=== PATIENT | male | born 1940 | race Hispanic/Latino ===

== ENCOUNTER 2017-05-29 11:26 | Observation (INO) | payer MEDICARE ==
[2017-05-29 11:33] VITALS: BMI 23.7
[2017-05-29] MEDS ORDERED: Aspirin 325 mg EC Tablets PO STA (12:05)
--- NOTE | 2017-05-29 12:10 | ED PDOC ---
Arrival/HPI <Bryon Durham - Last Filed: 05/29/17 12:53> - General Historian: Patient EM Caveat: Acuity of Condition - History of Present Illness Time/Duration: Prior to Arrival, < month (1 month) Symptom Onset: Gradual Symptom Course: Worsening Quality: Pressure Severity Level: 3 Activities at Onset: Rest, Light Context: Sitting, Standing, Home <Kellen Rodriguez - Last Filed: 05/29/17 14:58> - General Chief Complaint: Chest Pain Time Seen by Provider: 05/29/17 11:30 - History of Present Illness Narrative History of Present Illness (Text): 05/29/17 12:22 76 years old male with PMH anxiety, hernia repair, nonsmoker, presents for left sided chest pain for past 1 month. He states that its intermittent, not related to activities, describes it as pressure, denies radiation of pain, feels like "gas," denies sob, diaphoresis, palpitations, syncope, nausea, vomiting, diarrhea, constipation, urinary symptoms, headache, vision changes, weakness. Pt does feel anxious, as something is going on at home. Pt has not had similar pain before. No stress test previously done. PMD: Cardiello (Kellen Rodriguez) Associated Symptoms (Text): 05/29/17 12:33 denies sob, diaphoresis, palpitations, syncope, nausea, vomiting, diarrhea, constipation, urinary symptoms, headache, vision changes, weakness. (Kellen Rodriguez) Past Medical History - Provider Review Nursing Documentation Reviewed: Yes - Infectious Disease Hx of Infectious Diseases: None - Psychiatric Hx Anxiety: Yes Hx Substance Use: No - Anesthesia Hx Anesthesia: No <Kellen Rodriguez - Last Filed: 05/29/17 14:58> Family/Social History - Physician Review Nursing Documentation Reviewed: Yes Family/Social History: No Known Family HX Smoking Status: Unknown If Ever Smoked Hx Alcohol Use: No Hx Substance Use: No <Kellen Rodriguez - Last Filed: 05/29/17 14:58> Allergies/Home Meds <Bryon Durham - Last Filed: 05/29/17 12:53> <Kellen Rodriguez - Last Filed: 05/29/17 14:58> Allergies/Adverse Reactions: Allergies No Known Allergies Allergy (Verified 05/29/17 13:44) Home Medications: Home Meds Medication Instructions Recorded Confirmed Escitalopram [Lexapro] 10 mg PO DAILY 05/29/17 05/29/17 Review of Systems - Review of Systems Constitutional: absent: Fatigue, Fevers Eyes: absent: Vision Changes ENT: absent: Hearing Changes Respiratory: absent: SOB, Cough Cardiovascular: Chest Pain. absent: Palpitations, Calf Pain, MCALLISTER, Orthopnea, Syncope Gastrointestinal: Other (Dyspepsia). absent: Abdominal Pain, Constipation, Diarrhea, Nausea, Vomiting Genitourinary Male: absent: Dysuria, Hematuria Musculoskeletal: absent: Back Pain Skin: absent: Rash Neurological: absent: Headache, Focal Weakness Endocrine: absent: Diaphoresis Psychiatric: Anxiety <Kellen Rodriguez - Last Filed: 05/29/17 14:58> Physical Exam Vital Signs Reviewed: Yes Temperature: Afebrile Blood Pressure: Normal Pulse: Regular Respiratory Rate: Normal Appearance: Positive for: Non-Toxic Pain Distress: None Mental Status: Positive for: Alert and Oriented X 3 - Systems Exam Head: Present: Atraumatic, Normocephalic Pupils: Present: PERRL Extroacular Muscles: Present: EOMI Conjunctiva: Present: Normal Mouth: Present: Moist Mucous Membranes Pharnyx: No: ERYTHEMA Neck: Present: Normal Range of Motion Respiratory/Chest: Present: Clear to Auscultation. No: Respiratory Distress, Accessory Muscle Use Cardiovascular: Present: Regular Rate and Rhythm, Normal S1, S2. No: Murmurs Abdomen: Present: Normal Bowel Sounds. No: Tenderness, Distention Upper Extremity: Present: Normal Inspection, NORMAL PULSES. No: Edema Lower Extremity: Present: NORMAL PULSES. No: Edema, CALF TENDERNESS Neurological: Present: GCS=15, Speech Normal Skin: Present: Warm, Dry Psychiatric: Present: Alert, Oriented x 3, Anxious <Kellen Rodriguez - Last Filed: 05/29/17 14:58> Vital Signs Temp Pulse Resp BP Pulse Ox 05/29/17 14:12 98.5 F 63 18 103/74 05/29/17 13:48 63 18 103/74 99 05/29/17 11:26 98.5 F 91 H 18 131/83 100 Medical Decision Making - Lab Interpretations I have reviewed the lab results: Yes Interpretation: All labs normal (nonspecific elevation BUN not clinically significant) - RAD Interpretation Saturator Operator: ED Physician, Radiologist - EKG Interpretation Type: 12 lead EKG Comparison: No previous EKG avail. <Bryon Durham - Last Filed: 05/29/17 12:53> - Lab Interpretations I have reviewed the lab results: Yes Interpretation: All labs normal - RAD Interpretation Saturator Operator: ED Physician, Radiologist - EKG Interpretation Interpreted by ED Physician: Yes Comparison: No previous EKG avail. <Kellen Rodriguez - Last Filed: 05/29/17 14:58> ED Course and Treatment: I examined and interviewed the patient and reviewed the care and management Given the patient's first presentation no prior cardia nonspecific EKG changes advanced age, and suspicious atypical symptoms believe that he should observed or admitted to the hospital for a cardiology consultation and stress. given the pressure-like symptoms non-tachycardia doubt PE doubt aortic dissection again no typical symptoms of aortic dissection no signs of pneumothorax pneumonia or CHF. GERD and anxiety are diagnoses of exclusion. 05/29/17 12:53 05/29/17 12:55 (Bryon Durham) 05/29/17 12:05 76 years old male with no significant PMH, presents for atypical chest pain: - CBC, CMP, lipase, cardiac iso, coags - ASA, Pepcid - EKG, CXR - HEART score 4 points (Moderate risk) - Reassess (Kellen Rodriguez) - Lab Interpretations Narrative Lab Interpretation (Text): 05/29/17 14:55 trop neg x1 (Kellen Rodriguez) Lab Results: 05/29/17 11:50 05/29/17 11:50 Lab Results 05/29/17 11:50: PT 11.0, INR 1.00, APTT 30.0 05/29/17 11:50: Sodium 138, Potassium 4.2, Chloride 106, Carbon Dioxide 24, Anion Gap 12, BUN 22 H, Creatinine 0.8, Est GFR ( Amer) > 60, Est GFR ( Non-Af Amer) > 60, Random Glucose 94, Calcium 9.7, Total Bilirubin 0.7, AST 31, ALT 26, Alkaline Phosphatase 85, Lactate Dehydrogenase 488, Total Creatine Kinase 192, Troponin I 0.02, Total Protein 7.1, Albumin 4.2, Globulin 2.9, Albumin/Globulin Ratio 1.5, Lipase 110 05/29/17 11:50: WBC 5.5, RBC 4.23, Hgb 14.3, Hct 40.4 L, MCV 95.5, MCH 33.8, MCHC 35.4, RDW 13.2, Plt Count 243, MPV 9.8, Gran % 51.6, Lymph % (Auto) 34.6, [place] % (Auto) 10.0 H, Eos % (Auto) 3.4, Baso % (Auto) 0.4, Gran # 2.85, Lymph # 1.9, [place] # 0.6, Eos # 0.2, Baso # 0.02 - RAD Interpretation Narrative RAD Interpretations (Text): 05/29/17 12:53 chest x-ray shows no infiltrates normal size mediastinum no acute disease ( Bryon Durham) CXR: no acute disease (Kellen Rodriguez) Radiology Orders: 05/29/17 12:15 CXR [CHEST PORTABLE] [RAD] Stat - EKG Interpretation EKG Interpretation (Text): 05/29/17 12:50 Rhythm at 85bpm, ST flattening in V4 5 and 6 also flattening in 3 QTc is 440 ms QRS is 86 ms. Impression: normal sinus rhythm with non specific ST changes ( Bryon Durham) - Medication Orders Current Medication Orders: Alprazolam (Xanax) 0.25 mg PO HS PRN; Protocol PRN Reason: Anxiety Stop: 06/05/17 22:01 Aspirin (Aspirin Chewable) 81 mg PO DAILY [facility] Pantoprazole Sodium (Protonix Ec Tab) 40 mg PO 0600 [facility] Discontinued Medications Aspirin (Aspirin Chewable) 81 mg PO STAT STA Stop: 05/29/17 12:11 Last Admin: 05/29/17 12:15 Dose: Famotidine (Pepcid) 40 mg PO STAT STA Stop: 05/29/17 12:11 Last Admin: 05/29/17 12:17 Dose: 40 mg - PA / CHALK TESTER / Resident Statement ROBER has examined the patient and agrees with the treatment plan. <Bryon Durham - Last Filed: 05/29/17 12:53> - PA / CHALK TESTER / Resident Statement ROBER has reviewed & agrees with the documentation as recorded. ROBER has examined the patient and agrees with the treatment plan. <Kellen Rodriguez - Last Filed: 05/29/17 14:58> Disposition/Present on Arrival - Present on Arrival Any Indicators Present on Arrival: No History of DVT/PE: No History of Uncontrolled Diabetes: No Urinary Catheter: No History of Decub. Ulcer: No - Disposition Have Diagnosis and Disposition been Completed?: Yes Patient Plan: Observation, Telemetry <Bryon Durham - Last Filed: 05/29/17 12:53> - Present on Arrival Any Indicators Present on Arrival: No History of DVT/PE: No History of Uncontrolled Diabetes: No Urinary Catheter: No History of Decub. Ulcer: No History Surgical Site Infection Following: None - Disposition Have Diagnosis and Disposition been Completed?: Yes Disposition Time: 14:30 Patient Plan: Observation, Telemetry <Kellen Rodriguez - Last Filed: 05/29/17 14:58> - Disposition Diagnosis: Chest pain Disposition: HOSPITALIZED Patient Problems: Current Active Problems Problem Status Onset Chest pain Acute Discharge Instructions (ExitCare): Chest Pain (ED) Forms: [facility] ([place])
[2017-05-29 12:18] LABS: BASO # 0.02 K/mm3 (0.0-2.0); BASO % 0.4 % (0.0-3.0); EOS # 0.2 (0.0-0.7); EOS % 3.4 % (1.5-5.0); GRAN # 2.85 (1.4-6.5); GRAN % 51.6 % (50.0-68.0); HEMATOCRIT 40.4 % (42.0-52.0); LYMPH # 1.9 (1.2-3.4); LYMPH % 34.6 % (22.0-35.0); MEAN CELL VOLUME 95.5 fl (80.0-105.0); MEAN CORPUSCULAR HEMOGLOBIN 33.8 pg (25.0-35.0); MEAN CORPUSCULAR HGB CONC 35.4 g/dl (31.0-37.0); MEAN PLATELET VOLUME 9.8 fl (7.0-11.0); MONO # 0.6 (0.1-0.6); RED CELL DISTRIBUTION WIDTH 13.2 % (11.5-14.5); WHITE BLOOD COUNT 5.5 10^3/ul (4.5-11.0)
[2017-05-29 12:31] LABS: ALB/GLOB RATIO 1.5 (1.1-1.8); ALKALINE PHOSPHATASE 85 U/L (38-126); ALT/SGPT 26 U/L (7-56); AST/SGOT 31 U/L (17-59); BILIRUBIN,TOTAL 0.7 mg/dL (0.2-1.3); BLOOD UREA NITROGEN 22 mg/dL (7-21); CALCIUM 9.7 mg/dL (8.4-10.5); CARBON DIOXIDE 24 mmol/L (21-33); CHLORIDE 106 mmol/L (98-107); GFR AFRICAN-AMERICAN > 60; GLUCOSE,RANDOM 94 mg/dL (70-110); LIPASE 110 U/L (23-300); POTASSIUM 4.2 mmol/L (3.6-5.0); SODIUM 138 mmol/L (132-148); TOTAL PROTEIN 7.1 g/dL (5.8-8.3)
[2017-05-29 12:40] LABS: TROPONIN I 0.02 ng/mL
--- NOTE | 2017-05-29 12:48 | RAD ---
HISTORY: chest pain COMPARISON: No prior. FINDINGS: LUNGS: No active pulmonary disease. PLEURA: No significant pleural effusion identified, no pneumothorax apparent. CARDIOVASCULAR: Normal. OSSEOUS STRUCTURES: No significant abnormalities. VISUALIZED UPPER ABDOMEN: Normal. OTHER FINDINGS: None. IMPRESSION: No active disease.
[2017-05-29] MEDS: Pantoprazole 40 mg EC Tab PO SCH (16:58)
--- NOTE | 2017-05-29 18:04 | CP.PCM.HP ---
<José Luis Ann - Last Filed: 05/29/17 18:30> History of Present Illness - History of Present Illness History of Present Illness: IM H&P for Hospitalist Service CC: Intermittent chest pain x1-2 months HPI: This is a 76 yo M with PMH of anxiety/depression who presents to the ED with complaint of intermittent L-sided chest pain for 1-2 months. Patient reports that the pain is not specifically triggered by anything, and occurs whether at rest or exerting himself. Admits to GERD-like symptoms (midsternal burning occasionally after food or when lying down), usually alleviated by ' s nexium, but reports that the nexium doesn't usually help the left-sided chest pain. Denies any shortness of breath, radiation of pain, nausea, emesis, syncope/near-syncope. 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 Denies suicidal ideation, but admits to depression and sense of feeling overwhelmed. Patient is visibly anxious during exam, but is otherwise pleasant. Only medication is daily lexapro for his anxiety. Used to see a Psychiatrist and therapist, but no longer does (reason unclear, patient alludes to financial reason but won't elaborate). No acute changes in his symptoms today, was trying to hold off on workup until his scheduled physical in July, but became anxious with the latest attack, so he called his PMD's office, who instructed him to present to the ED for evaluation. Reports episodes are sensation of "gas", happen 1-2 times per day but not every day, and usually only last for 5 minutes. Denies palpitations or shortness of breath. All other ROS in 12-system review are negative. PMH: as above PSH: denies FHx: denies any history in primary relatives, including heart attack, CAD, HTN, HLD, but admits his parents became demented in later life and he doesn't know what they of SHx: denies tobacco/alcohol/illicits/IVDA PMD: Dr. Kramer Present on Admission - Present on Admission Any Indicators Present on Admission: No History of DVT/PE: No History of Uncontrolled Diabetes: No Urinary Catheter: No Review of Systems - Review of Systems All systems: reviewed and no additional remarkable complaints except (as per HPI ) Past Patient History - Infectious Disease Hx of Infectious Diseases: None - Past Social History Smoking Status: Unknown If Ever Smoked - CARDIAC Hx Cardiac Disorders: No - PULMONARY Hx Respiratory Disorders: No - NEUROLOGICAL Hx Neurological Disorder: No - HEENT Hx HEENT Problems: Yes (WEARS RX GLASSES,BILATERAL CORNEAL TRANSPLANT) Hx Cataracts: Yes - RENAL Hx Chronic Kidney Disease: No - ENDOCRINE/METABOLIC Hx Endocrine Disorders: No - HEMATOLOGICAL/ONCOLOGICAL Hx Blood Disorders: No - INTEGUMENTARY Hx Dermatological Problems: No - MUSCULOSKELETAL/RHEUMATOLOGICAL Hx Musculoskeletal Disorders: No Hx Falls: No - GASTROINTESTINAL Hx Gastrointestinal Disorders: No - GENITOURINARY/GYNECOLOGICAL Hx Genitourinary Disorders: No - PSYCHIATRIC Hx Anxiety: Yes Hx Substance Use: No - SURGICAL HISTORY Hx Surgeries: Yes (BILATERAL HERNIORHAPPHY,BILATERAL CORNEAL TRANSPLANT) - ANESTHESIA Hx Anesthesia: No Meds Allergies/Adverse Reactions: Allergies Allergy/AdvReac Type Severity Reaction Status Date / Time No Known Allergies Allergy Verified 05/29/17 13:44 Physical Exam - Constitutional Appears: Well, Non-toxic, No Acute Distress, Other (Mildly anxious but otherwise pleasant) - Head Exam Head Exam: ATRAUMATIC, NORMAL INSPECTION, NORMOCEPHALIC - Eye Exam Eye Exam: EOMI, Normal appearance. absent: Conjunctival injection, Scleral icterus Pupil Exam: absent: Irregular, Unequal - ENT Exam ENT Exam: Mucous Membranes Moist - Neck Exam Neck exam: Positive for: Full Rom, Normal Inspection. Negative for: Lymphadenopathy, Thyromegaly - Respiratory Exam Respiratory Exam: Clear to Auscultation Bilateral, NORMAL BREATHING PATTERN. absent: Accessory Muscle Use, Chest Wall Tenderness, Decreased Breath Sounds, Rales, Rhonchi, Wheezes - Cardiovascular Exam Cardiovascular Exam: REGULAR RHYTHM, RRR, +S1, +S2. absent: Bradycardia, Tachycardia, Irregular Rhythm, +S4 - GI/Abdominal Exam GI & Abdominal Exam: Normal Bowel Sounds, Soft. absent: Diminished Bowel Sounds , Distended, Firm, Hyperactive Bowel Sounds, Hypoactive Bowel Sounds, Rigid, Tenderness - Extremities Exam Extremities exam: Positive for: normal inspection, pedal pulses present. Negative for: calf tenderness, pedal edema, tenderness - Neurological Exam Neurological exam: Alert, CN II-XII Intact Additional comments: alert and awake, following all commands, moving all extremities spontaneously or when requested - Psychiatric Exam Psychiatric exam: Anxious, Normal Affect - Skin Skin Exam: Dry, Intact, Normal Color, Warm Results - Vital Signs Recent Vital Signs: Last Vital Signs Temp 98.7 F 05/29/17 17:34 Pulse 75 05/29/17 17:34 Resp 20 05/29/17 17:34 BP 124/77 05/29/17 17:34 Pulse Ox 99 05/29/17 13:48 - Labs Result Diagrams: 05/29/17 11:50 05/29/17 11:50 Assessment & Plan - Assessment and Plan (Free Text) Assessment: This is a 76 yo M with PMH of anxiety/depression who presents to the ED with complaint of intermittent L-sided chest pain for 1-2 months. He is being admitted for telemetry obs, ACS rule out. Plan: 1) Intermittent chest pain -atypical chest pain, intermittent and not related to exertion -anxiety vs ACS vs unstable or variant angina vs GERD -patient admits to high life stress right now due to work-related issues -trop x1 in ED 0.02, will trend 2 more q8h -EKG in ED NSR with normal intervals, heart rate RRR in 60's on bedside monitor during exam, will repeat EKG in am -Cardio (Dr. Apple) consulted, appreciate all recs -given lack of cardiac history, family cardiac hx, and thus far normal cardiac findings, will defer Echo for now; if any repeat troponins return indeterminant or elevated will order Echo -given Aspirin 81mg in ED, will continue daily -continue home lexapro -0.25mg Xanax qHS prn for anxiety -Protonix 40mg PO daily for GERD-like symptoms -heart healthy diet Dispo: Telemetry obs, pending trending trops, repeat EKG, and Cardio eval and recs FEN: Heart healthy diet Access: Peripheral IV Consults: Cardio Ppx: Protonix for GI, SCDs for DVT Patient seen, reviewed, and discussed with attending, Dr. Roth. Decision To Admit - Pt Status Changed To: Hospital Disposition Of: Observation - . Bed Request Type: Telemetry <Lucinda Roth - Last Filed: 05/30/17 16:39> Results - Vital Signs Recent Vital Signs: Last Vital Signs Temp 98.4 F 05/30/17 12:00 Pulse 74 05/30/17 14:00 Resp 18 05/30/17 12:00 BP 131/71 05/30/17 12:00 Pulse Ox 97 05/30/17 12:00 - Labs Result Diagrams: 05/30/17 04:00 05/30/17 04:00 Labs: Laboratory Results - last 24 hr 05/29/17 05/30/17 05/30/17 20:05 04:00 04:00 WBC 5.3 RBC 4.18 Hgb 13.9 L Hct 40.7 L MCV 97.4 MCH 33.3 MCHC 34.2 RDW 13.5 Plt Count 220 MPV 10.0 Gran % 40.0 L Lymph % (Auto) 43.4 H [place] % (Auto) 11.3 H Eos % (Auto) 4.7 Baso % (Auto) 0.6 Gran # 2.12 Lymph # 2.3 Webb # 0.6 Eos # 0.3 Baso # 0.03 Sodium 140 Potassium 4.6 Chloride 106 Carbon Dioxide 26 Anion Gap 13 BUN 19 Creatinine 0.9 Est GFR ( Amer) > 60 Est GFR (Non-Af Amer) > 60 Random Glucose 94 Calcium 9.8 Phosphorus 4.0 Magnesium 2.2 Troponin I 0.13 H* D 0.07 D Triglycerides 66 Cholesterol 168 LDL Cholesterol Direct 106 HDL Cholesterol 56 Free T4 Total T3 TSH 3rd Generation 05/30/17 05/30/17 04:00 04:00 WBC RBC Hgb Hct MCV MCH MCHC RDW Plt Count MPV Gran % Lymph % (Auto) [place] % (Auto) Eos % (Auto) Baso % (Auto) Gran # Lymph # Webb # Eos # Baso # Sodium Potassium Chloride Carbon Dioxide Anion Gap BUN Creatinine Est GFR ( Amer) Est GFR (Non-Af Amer) Random Glucose Calcium Phosphorus Magnesium Troponin I Triglycerides Cholesterol LDL Cholesterol Direct HDL Cholesterol Free T4 0.77 L Total T3 1.52 TSH 3rd Generation 5.18 H Attending/Attestation - Attestation I have personally seen and examined this patient.: Yes I have fully participated in the care of the patient.: Yes I have reviewed all pertinent clinical information: Yes Notes (Text): 05/30/17 16:37 Patient was seen and examined with medical technician. Agreed with resident assessment and plan. 76 yo M with PMH of anxiety/depression is admitted with chest pain, intermittent for some times, lasting less than one minutes, EKG is negative for acute ischemic changes, we will admit patient in telemetry and will get serial troponin.We will check patient lipid profile and will also get lipid profile. Management plan was discussed in detail with patient Education was provided.
[2017-05-30 04:47] LABS: BLOOD UREA NITROGEN 19 mg/dL (7-21); CALCIUM 9.8 mg/dL (8.4-10.5); CARBON DIOXIDE 26 mmol/L (21-33); CHLORIDE 106 mmol/L (98-107); CHOLESTEROL 168 mg/dL (130-200); GFR AFRICAN-AMERICAN > 60; GLUCOSE,RANDOM 94 mg/dL (70-110); MAGNESIUM 2.2 mg/dL (1.7-2.2); POTASSIUM 4.6 mmol/L (3.6-5.0); SODIUM 140 mmol/L (132-148)
[2017-05-30 04:59] LABS: TROPONIN I 0.07 ng/mL
[2017-05-30 05:12] LABS: BASO # 0.03 K/mm3 (0.0-2.0); BASO % 0.6 % (0.0-3.0); EOS # 0.3 (0.0-0.7); EOS % 4.7 % (1.5-5.0); GRAN # 2.12 (1.4-6.5); HEMATOCRIT 40.7 % (42.0-52.0); LYMPH # 2.3 (1.2-3.4); LYMPH % 43.4 % (22.0-35.0); MEAN CELL VOLUME 97.4 fl (80.0-105.0); MEAN CORPUSCULAR HEMOGLOBIN 33.3 pg (25.0-35.0); MEAN CORPUSCULAR HGB CONC 34.2 g/dl (31.0-37.0); MONO # 0.6 (0.1-0.6); MONO % 11.3 % (1.0-6.0); RED CELL DISTRIBUTION WIDTH 13.5 % (11.5-14.5); WHITE BLOOD COUNT 5.3 10^3/ul (4.5-11.0)
[2017-05-30] MEDS: Pantoprazole 40 mg EC Tab PO SCH (06:12)
--- NOTE | 2017-05-30 06:22 | CP.PCM.PN ---
Subjective - Date & Time of Evaluation Date of Evaluation: 05/30/17 Time of Evaluation: 06:20 - Subjective Subjective: Night Float Progress Note: Nurse paged at approx 5:50 with results of troponin drawn at 20:05 which was 0.13. Troponin that was drawn at 04:00 down trended to 0.07. Per nursing, patient was asymptomatic. Patient seen and examined at the bedside, patient is doing well. Offers no complaints at this time. States that he slept well. Denies headaches, dizziness, cp, palpitations, sob, abdominal pain. Objective - Vital Signs/Intake and Output Vital Signs (last 24 hours): Temp Pulse Resp BP Pulse Ox 97.9 F 65 19 126/68 98 05/30/17 00:01 05/30/17 05:45 05/30/17 00:01 05/30/17 00:01 05/30/17 00:01 - Medications Medications: Current Medications Alprazolam (Xanax) 0.25 mg PO HS PRN; Protocol PRN Reason: Anxiety Stop: 06/05/17 22:01 Aspirin (Aspirin Chewable) 81 mg PO DAILY [facility] Escitalopram Oxalate (Lexapro) 10 mg PO DAILY [facility] Pantoprazole Sodium (Protonix Ec Tab) 40 mg PO 0600 [facility] Last Admin: 05/30/17 06:12 Dose: 40 mg - Labs Labs: 05/30/17 04:00 05/30/17 04:00 PT 11.0 SECONDS (9.4-12.5) 05/29/17 11:50 INR 1.00 (0.93-1.08) 05/29/17 11:50 APTT 30.0 Seconds (25.1-36.5) 05/29/17 11:50 - Constitutional Appears: Well, No Acute Distress - Head Exam Head Exam: ATRAUMATIC, NORMAL INSPECTION, NORMOCEPHALIC - Eye Exam Eye Exam: EOMI, Normal appearance Pupil Exam: NORMAL ACCOMODATION - ENT Exam ENT Exam: Mucous Membranes Moist - Neck Exam Neck Exam: Full ROM - Respiratory Exam Respiratory Exam: Clear to Ausculation Bilateral, NORMAL BREATHING PATTERN. absent: Rales, Rhonchi, Wheezes - Cardiovascular Exam Cardiovascular Exam: REGULAR RHYTHM, +S1, +S2, Murmur - GI/Abdominal Exam GI & Abdominal Exam: Soft, Normal Bowel Sounds. absent: Guarding, Tenderness - Extremities Exam Extremities Exam: Normal Inspection - Neurological Exam Neurological Exam: Alert, Awake, Oriented x3 - Psychiatric Exam Psychiatric exam: Normal Affect, Normal Mood - Skin Skin Exam: Dry, Normal Color, Warm Assessment and Plan - Assessment and Plan (Free Text) Assessment: This is a 76 yo M with PMH of anxiety/depression who presents to the ED with complaint of intermittent L-sided chest pain for 1-2 months Plan: Chest pain r/o ACS -Stable, currently asymptomatic -Repeat EKG, Repeat troponin at 12pm -Cardiology on consult, f/u recommendations -Will notify day team
[2017-05-30] MEDS ORDERED: Heparin25000 units/250ml 1/2NS 25,000 UNITS/250 ML BAG IV SCH (07:30)
[2017-05-30] MEDS ORDERED: Metoprolol Succinate 25 mg XL Tab PO SCH (07:30)
[2017-05-30 08:39] LABS: FREE T4 0.77 ng/dL (0.78-2.19)
[2017-05-30 08:53] LABS: T3 1.52 ng/mL (0.97-1.69)
[2017-05-30 12:06] VITALS: BP 131/71; RESP 18; TEMP 98.4; O2SAT 97
--- NOTE | 2017-05-30 12:50 | CARD ---
APPROVED REPORT EXAM: Two-dimensional and M-mode echocardiogram with Doppler and color Doppler. INDICATION Chest Pain 2D DIMENSIONS IVSd1.0 (0.7-1.1cm)LVDd4.0 (3.9-5.9cm) PWd1.3 (0.7-1.1cm)LVDs2.7 (2.5-4.0cm) FS (%) 33.8 %LVEF (%)63.3 (>50%) M-Mode DIMENSIONS Aortic Root3.60 (2.2-3.7cm)Aortic Cusp Exc.1.80 (1.5-2.0cm) Aortic Valve AoV Peak Xuarumjs943.0cm/Shyla Peak GR.15mmHgLVOT Peak Gmbpofzy154.0cm/s LVOT VTI27.60cmAI P 1/2 Sbrd169ow Mitral Valve MV E Zafcelxc94.6cm/sMV A Vawhiyjj115.0cm/sMV BBS416co E/A ratio0.9MVA (PHT)2.04cm2 TDI Lateral E' Peak V10.10cm/sMedial E' Peak V4.97cm/sE/Lateral E'9.5 E/Medial E'19.2 Pulmonary Valve PV Peak Fxehqras417.0cm/sPV Peak Grad.5mmHg Tricuspid Valve TR Peak Mhlkqfvr159fk/sRAP [id number] Peak Gr.29mmHg [id number] LEFT VENTRICLE The left ventricle is normal size. There is mild concentric left ventricular hypertrophy. The left ventricular function is normal. The left ventricular ejection fraction is within the normal range. There is normal LV segmental wall motion. Transmitral Doppler flow pattern is Grade I-abnormal relaxation pattern. RIGHT VENTRICLE The right ventricle is normal size. There is normal right ventricular wall thickness. The right ventricular systolic function is normal. ATRIA The left atrium size is normal. The right atrium size is normal. AORTIC VALVE The aortic valve is moderately thickened. There is moderate aortic regurgitation. MITRAL VALVE The mitral valve is mildly thickened. There is no mitral valve regurgitation noted. TRICUSPID VALVE There is mild pulmonary hypertension. GREAT VESSELS The aortic root is normal in size. The IVC is normal in size and collapses >50% with inspiration. <Conclusion> The left ventricle is normal size. There is mild concentric left ventricular hypertrophy. The left ventricular function is normal. The left ventricular ejection fraction is within the normal range. There is normal LV segmental wall motion. Transmitral Doppler flow pattern is Grade I-abnormal relaxation pattern. There is moderate aortic regurgitation. There is mild pulmonary hypertension.
[2017-05-30 14:50] VITALS: PULSE 74
--- NOTE | 2017-05-30 15:28 | CP.PCM.DIS ---
<José Luis Ann - Last Filed: 05/30/17 15:24> Provider - Provider Date of Admission: 05/29/17 13:00 Attending physician: Bobby Rainey MD Primary care physician: Ventura Kramer MD Consults: Cardio: Zechariah Time Spent in preparation of Discharge (in minutes): 35 Diagnosis - Discharge Diagnosis (1) Anxiety Status: Chronic Priority: Medium (2) Elevated troponin Status: Acute Priority: High (3) Chest pain Status: Resolved Priority: High Hospital Course - Lab Results Lab Results: Most Recent Lab Values WBC 5.3 10^3/ul (4.5-11.0) 05/30/17 04:00 RBC 4.18 10^6/uL (3.5-6.1) 05/30/17 04:00 Hgb 13.9 g/dL (14.0-18.0) L 05/30/17 04:00 Hct 40.7 % (42.0-52.0) L 05/30/17 04:00 MCV 97.4 fl (80.0-105.0) 05/30/17 04:00 MCH 33.3 pg (25.0-35.0) 05/30/17 04:00 MCHC 34.2 g/dl (31.0-37.0) 05/30/17 04:00 RDW 13.5 % (11.5-14.5) 05/30/17 04:00 Plt Count 220 10^3/uL (120.0-450.0) 05/30/17 04:00 MPV 10.0 fl (7.0-11.0) 05/30/17 04:00 Gran % 40.0 % (50.0-68.0) L 05/30/17 04:00 Lymph % (Auto) 43.4 % (22.0-35.0) H 05/30/17 04:00 [place] % (Auto) 11.3 % (1.0-6.0) H 05/30/17 04:00 Eos % (Auto) 4.7 % (1.5-5.0) 05/30/17 04:00 Baso % (Auto) 0.6 % (0.0-3.0) 05/30/17 04:00 Gran # 2.12 (1.4-6.5) 05/30/17 04:00 Lymph # 2.3 (1.2-3.4) 05/30/17 04:00 [place] # 0.6 (0.1-0.6) 05/30/17 04:00 Eos # 0.3 (0.0-0.7) 05/30/17 04:00 Baso # 0.03 K/mm3 (0.0-2.0) 05/30/17 04:00 PT 11.0 SECONDS (9.4-12.5) 05/29/17 11:50 INR 1.00 (0.93-1.08) 05/29/17 11:50 APTT 30.0 Seconds (25.1-36.5) 05/29/17 11:50 Sodium 140 mmol/L (132-148) 05/30/17 04:00 Potassium 4.6 mmol/L (3.6-5.0) 05/30/17 04:00 Chloride 106 mmol/L (98-107) 05/30/17 04:00 Carbon Dioxide 26 mmol/L (21-33) 05/30/17 04:00 Anion Gap 13 (10-20) 05/30/17 04:00 BUN 19 mg/dL (7-21) 05/30/17 04:00 Creatinine 0.9 mg/dl (0.8-1.5) 05/30/17 04:00 Est GFR ( Amer) > 60 05/30/17 04:00 Est GFR (Non-Af Amer) > 60 05/30/17 04:00 Random Glucose 94 mg/dL (70-110) 05/30/17 04:00 Calcium 9.8 mg/dL (8.4-10.5) 05/30/17 04:00 Phosphorus 4.0 mg/dL (2.5-4.5) 05/30/17 04:00 Magnesium 2.2 mg/dL (1.7-2.2) 05/30/17 04:00 Total Bilirubin 0.7 mg/dL (0.2-1.3) 05/29/17 11:50 AST 31 U/L (17-59) 05/29/17 11:50 ALT 26 U/L (7-56) 05/29/17 11:50 Alkaline Phosphatase 85 U/L (38-126) 05/29/17 11:50 Lactate Dehydrogenase 488 U/L (333-699) 05/29/17 11:50 Total Creatine Kinase 192 U/L (35-230) 05/29/17 11:50 Troponin I 0.07 ng/mL D 05/30/17 04:00 Total Protein 7.1 g/dL (5.8-8.3) 05/29/17 11:50 Albumin 4.2 g/dL (3.0-4.8) 05/29/17 11:50 Globulin 2.9 gm/dL 05/29/17 11:50 Albumin/Globulin Ratio 1.5 (1.1-1.8) 05/29/17 11:50 Triglycerides 66 mg/dL (35-160) 05/30/17 04:00 Cholesterol 168 mg/dL (130-200) 05/30/17 04:00 LDL Cholesterol Direct 106 mg/dL (0-129) 05/30/17 04:00 HDL Cholesterol 56 mg/dL (29-60) 05/30/17 04:00 Lipase 110 U/L (23-300) 05/29/17 11:50 Free T4 0.77 ng/dL (0.78-2.19) L 05/30/17 04:00 Total T3 1.52 ng/mL (0.97-1.69) 05/30/17 04:00 TSH 3rd Generation 5.18 mIU/mL (0.46-4.68) H 05/30/17 04:00 - Hospital Course Hospital Course: This is a 76 yo M with PMH of anxiety/depression who presents to the ED with complaint of intermittent L-sided chest pain for 1-2 months, and was admitted for ACS r/o. While here, he experienced an increase in his troponin from 0.02 to 0.13, before decreasing to 0.07. He was started on Lipitor, Heparin drip, Metoprolol, and Plavix due to these findings (was already on daily aspirin). EKGs on admission and on repeat were only notable for normal sinus rhythm, with normal intervals, and no ST-T segment changes. An Echo was obtained, which was notable for moderate Aortic regurg, mild Pulm hypertension, mild concentric left ventricular hypertrophy, and a normal range EF (63.3%). While here, patient was also seen by cardiology, who offered the patient the option to remain inpatient and undergo a cardiac cath; patient declined, stating he would rather follow up and schedule one as an outpatient, which was acceptable as per Cardio. Scripts for Aspirin, Plavix, Lipitor, and Metoprolol tartrate were electronically transmitted to the in-house pharmacy for availability on discharge. Patient was instructed to take all medications as prescribed, and to follow up with his PMD and a cafe assistant of his choosing (referral for Dr. Apple given) within 1 week. Patient and his expressed understanding and agreement with these instructions, all questions were answered to his satisfaction, and then he was discharged. Patient seen, reviewed, and discussed with attending, Dr. Roth. Discharge Exam - Additional Findings Additional findings: - Constitutional Appears: Well, Non-toxic, No Acute Distress, Other (Mildly anxious but otherwise pleasant) - Head Exam Head Exam: ATRAUMATIC, NORMAL INSPECTION, NORMOCEPHALIC - Eye Exam Eye Exam: EOMI, Normal appearance. absent: Conjunctival injection, Scleral icterus Pupil Exam: absent: Irregular, Unequal - ENT Exam ENT Exam: Mucous Membranes Moist - Neck Exam Neck exam: Positive for: Full Rom, Normal Inspection. Negative for: Lymphadenopathy, Thyromegaly - Respiratory Exam Respiratory Exam: Clear to Auscultation Bilateral, NORMAL BREATHING PATTERN. absent: Accessory Muscle Use, Chest Wall Tenderness, Decreased Breath Sounds, Rales, Rhonchi, Wheezes - Cardiovascular Exam Cardiovascular Exam: REGULAR RHYTHM, RRR, +S1, +S2. absent: Bradycardia, Tachycardia, Irregular Rhythm, +S4 - GI/Abdominal Exam GI & Abdominal Exam: Normal Bowel Sounds, Soft. absent: Diminished Bowel Sounds , Distended, Firm, Hyperactive Bowel Sounds, Hypoactive Bowel Sounds, Rigid, Tenderness - Extremities Exam Extremities exam: Positive for: normal inspection, pedal pulses present. Negative for: calf tenderness, pedal edema, tenderness - Neurological Exam Neurological exam: Alert, CN II-XII Intact alert and awake, following all commands, moving all extremities spontaneously or when requested - Psychiatric Exam Psychiatric exam: Anxious, Normal Affect - Skin Skin Exam: Dry, Intact, Normal Color, Warm Discharge Plan - Discharge Medications Prescriptions: Aspirin [Aspirin Chewable] 81 mg PO DAILY #30 ctb Atorvastatin [Lipitor] 40 mg PO DAILY #30 tab Clopidogrel [Plavix] 75 mg PO DAILY #30 tab Metoprolol Tartrate [Lopressor] 12.5 mg PO BID #60 tab - Follow Up Plan Condition: IMPROVED Disposition: HOME/ ROUTINE Instructions: Angina (DC), Chest Pain (ED) Additional Instructions: You have been started on Aspirin, Plavix, Metoprolol, and Lipitor. Please take all as prescribed. You may resume your home Lexapro as previously scheduled. Please follow up with your PMD within 1 week of discharge. Please follow up with Dr. Apple (Cardio) or a cafe assistant of your choice within 1 week for possible cardiac cath. If you experience worsening chest pains or new concerning symptoms, please return to the hospital immediately. Referrals: Ventura Kramer MD [Primary Care Provider] - Emmett Apple MD [Staff Provider] - <Lucinda Roth - Last Filed: 05/30/17 16:43> Provider - Provider Date of Admission: 05/29/17 13:00 Attending physician: Bobby Rainey MD Primary care physician: Ventura Kramer MD Hospital Course - Lab Results Lab Results: Most Recent Lab Values WBC 5.3 10^3/ul (4.5-11.0) 05/30/17 04:00 RBC 4.18 10^6/uL (3.5-6.1) 05/30/17 04:00 Hgb 13.9 g/dL (14.0-18.0) L 05/30/17 04:00 Hct 40.7 % (42.0-52.0) L 05/30/17 04:00 MCV 97.4 fl (80.0-105.0) 05/30/17 04:00 MCH 33.3 pg (25.0-35.0) 05/30/17 04:00 MCHC 34.2 g/dl (31.0-37.0) 05/30/17 04:00 RDW 13.5 % (11.5-14.5) 05/30/17 04:00 Plt Count 220 10^3/uL (120.0-450.0) 05/30/17 04:00 MPV 10.0 fl (7.0-11.0) 05/30/17 04:00 Gran % 40.0 % (50.0-68.0) L 05/30/17 04:00 Lymph % (Auto) 43.4 % (22.0-35.0) H 05/30/17 04:00 [place] % (Auto) 11.3 % (1.0-6.0) H 05/30/17 04:00 Eos % (Auto) 4.7 % (1.5-5.0) 05/30/17 04:00 Baso % (Auto) 0.6 % (0.0-3.0) 05/30/17 04:00 Gran # 2.12 (1.4-6.5) 05/30/17 04:00 Lymph # 2.3 (1.2-3.4) 05/30/17 04:00 [place] # 0.6 (0.1-0.6) 05/30/17 04:00 Eos # 0.3 (0.0-0.7) 05/30/17 04:00 Baso # 0.03 K/mm3 (0.0-2.0) 05/30/17 04:00 PT 11.0 SECONDS (9.4-12.5) 05/29/17 11:50 INR 1.00 (0.93-1.08) 05/29/17 11:50 APTT 30.0 Seconds (25.1-36.5) 05/29/17 11:50 Sodium 140 mmol/L (132-148) 05/30/17 04:00 Potassium 4.6 mmol/L (3.6-5.0) 05/30/17 04:00 Chloride 106 mmol/L (98-107) 05/30/17 04:00 Carbon Dioxide 26 mmol/L (21-33) 05/30/17 04:00 Anion Gap 13 (10-20) 05/30/17 04:00 BUN 19 mg/dL (7-21) 05/30/17 04:00 Creatinine 0.9 mg/dl (0.8-1.5) 05/30/17 04:00 Est GFR ( Amer) > 60 05/30/17 04:00 Est GFR (Non-Af Amer) > 60 05/30/17 04:00 Random Glucose 94 mg/dL (70-110) 05/30/17 04:00 Calcium 9.8 mg/dL (8.4-10.5) 05/30/17 04:00 Phosphorus 4.0 mg/dL (2.5-4.5) 05/30/17 04:00 Magnesium 2.2 mg/dL (1.7-2.2) 05/30/17 04:00 Total Bilirubin 0.7 mg/dL (0.2-1.3) 05/29/17 11:50 AST 31 U/L (17-59) 05/29/17 11:50 ALT 26 U/L (7-56) 05/29/17 11:50 Alkaline Phosphatase 85 U/L (38-126) 05/29/17 11:50 Lactate Dehydrogenase 488 U/L (333-699) 05/29/17 11:50 Total Creatine Kinase 192 U/L (35-230) 05/29/17 11:50 Troponin I 0.07 ng/mL D 05/30/17 04:00 Total Protein 7.1 g/dL (5.8-8.3) 05/29/17 11:50 Albumin 4.2 g/dL (3.0-4.8) 05/29/17 11:50 Globulin 2.9 gm/dL 05/29/17 11:50 Albumin/Globulin Ratio 1.5 (1.1-1.8) 05/29/17 11:50 Triglycerides 66 mg/dL (35-160) 05/30/17 04:00 Cholesterol 168 mg/dL (130-200) 05/30/17 04:00 LDL Cholesterol Direct 106 mg/dL (0-129) 05/30/17 04:00 HDL Cholesterol 56 mg/dL (29-60) 05/30/17 04:00 Lipase 110 U/L (23-300) 05/29/17 11:50 Free T4 0.77 ng/dL (0.78-2.19) L 05/30/17 04:00 Total T3 1.52 ng/mL (0.97-1.69) 05/30/17 04:00 TSH 3rd Generation 5.18 mIU/mL (0.46-4.68) H 05/30/17 04:00 Attending/Attestation - Attestation I have personally seen and examined this patient.: Yes I have fully participated in the care of the patient.: Yes I have reviewed all pertinent clinical information, including history, physical exam and plan: Yes Notes (Text): 05/30/17 16:40 Patient was seen and examined with medical officer. Agreed with resident assessment and plan. 76 yo M with PMH of anxiety/depression was admitted with chest pain, intermittent for some times, lasting less than one minutes, EKG is negative for acute ischemic changes, patient has small elevation of one troponin last night but next troponin came back to normal.He remained pain free.He was evaluated by cardiology and was offered cardiac catherization but patient wanted to do cardiac catherization.As he is not availavle today, he opted to follow up with him as out patient.This was discussed in detail with him.He will be discharged home on ASA/Plavis/Metoprolol.Lipitor. Management plan was discussed in detail with patient Education was provided.
--- NOTE | 2017-05-30 22:02 | CARD ---
APPROVED REPORT EKG Measurement Heart [id number] <Conclusion> Sinus bradycardia Otherwise normal ECG
--- NOTE | 2017-05-30 22:25 | CARD ---
APPROVED REPORT EKG Measurement Heart [id number] <Conclusion> Normal sinus rhythm Normal ECG
--- NOTE | 2017-05-30 22:32 | CON ---
DATE: CARDIOLOGY CONSULTATION REASON FOR CONSULTATION: Chest pain. HISTORY OF PRESENT ILLNESS: The patient is a 76-year-old male, who has a history of anxiety, no known prior cardiac history, presented because of chest pain in the left side under his left arm. The patient denies any associated diaphoresis. The patient is currently chest pain free. The patient describes the chest pain as gas like. SOCIAL HISTORY: The patient is a nonsmoker. MEDICATIONS: At home, the patient was only on Lexapro. CURRENT HOSPITAL MEDICATIONS: Aspirin 81 mg once a day, intravenous heparin infusion in a therapeutic regimen for acute coronary syndrome, Lipitor 40 mg once a day, Lexapro 10 mg once a day, Plavix 75 mg once a day, Toprol-XL 12.5 mg twice a day. REVIEW OF SYSTEMS: No nausea or vomiting. No fever or chills. No dizziness or syncope. PHYSICAL EXAMINATION: GENERAL: The patient is an elderly male who does not appear to be in acute distress. VITAL SIGNS: Blood pressure 131/71, heart rate is 67, temperature 98.4, respirations 18. HEENT: Normocephalic. NECK: No JVD. CHEST: Clear. HEART: S1 and S2 are regular. ABDOMEN: Soft. EXTREMITIES: No edema. LABORATORY DATA: Hemoglobin and hematocrit 13.9 and 40.7. White count and platelet count are within normal limits. SMA-7 today is entirely within normal limits. Troponin is 0.02, 0.13, and 0.07. TSH level is slightly elevated at 5.18. Lipid profile is within normal limits. PT, PTT, and INR are within normal limits. Chest x-ray was unremarkable except for prominent bronchovascular markings. EKG revealed sinus bradycardia at the rate of 58. Echocardiographic study revealed mild concentric LVH with normal ejection fraction, grade-1 abnormal relaxation pattern, moderate aortic insufficiency and mild pulmonary hypertension. ASSESSMENT: 1. Chest pain with borderline troponin elevation. 2. Moderate aortic insufficiency. 3. Mild pulmonary hypertension. 4. Mild sinus bradycardia. CONDITIONS: Continue current aspirin 81 mg once a day, Lipitor 40 mg once a day, Toprol-XL 12.5 mg once a day, hold for heart rate below 60. I start the Plavix 75 mg once a day. Cardiac catheterization was presented to the patient and his ; however, the patient preferred to go home and come back on Saturday after he contacts Dr. Apple whom the patient prefers to have the procedure performed by. Case was discussed with the hospitalist and the patient will be discharged on aspirin, Plavix, and Lipitor therapy. Domingo Kelley MD
== END 2017-05-30 16:09 | disposition home or self-care (01) ==
LOC: ED 11:26 → ERH 13:00 → 3RSO 14:49
PROVIDERS: ADMIT Internal Medicine; ATTEND Internal Medicine
DX: R07.89 Other chest pain (principal); F41.9 Anxiety disorder, unspecified; F32.9 Major depressive disorder, single episode, unspecified; I27.20 Pulmonary hypertension, unspecified; I35.1 Nonrheumatic aortic (valve) insufficiency; R00.1 Bradycardia, unspecified; R74.8 Abnormal levels of other serum enzymes; Z94.7 Corneal transplant status
CPT/HCPCS: 36415; 71010; 80048; 80053; 80061; 82550; 83615; 83690; 83735; 84100; 84439; 84443; 84480; 84484; 85025; 85610; 85730; 93005; 93306; 99285; G0378